=== PATIENT | male | born 2000 | race Caucasian/White ===

== ENCOUNTER 2021-11-15 06:55 | Emergency (ER) | payer OTHER, SELFPAY ==
--- NOTE | ~2021-11-15 | CT_ITS ---
EXAMINATION: CT abdomen pelvis wo con DATE: 11/15/2021 08:08 INDICATION: Left flank pain and back pain for 2 years TECHNIQUE: Computed tomography (CT) of the abdomen and pelvis was performed without intravenous contr ast. The dose-length product was 505.41 mGy-cm. Automated exposure control and iterative reconstructi on technique were employed. COMPARISON: None. FINDINGS: Lung bases are unremarkable. Heart size is normal. No significant pleural or pericardial ef fusion. There are calcified granulomas of the spleen. No renal/ureteral stones identified. The liver appears enlarged. Nonobstructive bowel gas pattern. Small amount of free fluid in the pelvis, nonspec ific. Nonobstructive bowel gas pattern. Colonic diverticulosis. Mild thickening of the descending col on and proximal sigmoid colon. Gallbladder is present. Normal lumbar alignment. No acute fracture or traumatic malalignment. IMPRESSION: 1. Mild thickening of the descending and proximal sigmoid colon. Small and or free fluid in the pelvi s. Findings suspicious for colitis, possibly infectious or inflammatory. 2: Hepatomegaly. Reviewed, dictated and finalized at location A. IMPRESSION: 1. Mild thickening of the descending and proximal sigmoid colon. Small and or f ree fluid in the pelvis. Findings suspicious for colitis, possibly infectious o r inflammatory. 2: Hepatomegaly.
[2021-11-15 07:02] VITALS: BP 124/68; PULSE 79; RESP 17; TEMP 36.6; O2SAT 100
[2021-11-15 07:30] LABS: Basophils Absolute Auto 0.1 K/mm3 (0.0-0.1); Eosinophils Absolute Auto 0.4 K/mm3 (0-0.3); Eosinophils Percent Auto 3.9 % (0-4.4); Hematocrit 40.2 % (42.0-52.0); Hemoglobin 12.9 g/dL (14.0-18.0); Immature Granulocyte Absolute 0.05 K/mm3 (0.00-0.031); Immature Granulocyte Percent A 0.5 % (0-0.5); Lymphocytes Absolute Auto 2.83 K/mm3 (0.9-3.2); Lymphocytes Percent Auto 30.2 % (18.3-44.2); Mean Corpuscular HGB Conc 32.1 g/dl (32-36); Mean Corpuscular Hemoglobin 29.2 pg (26-34); Mean Platelet Volume 9.2 fl (7.4-10.4); Monocytes Absolute Auto 0.8 K/mm3 (0.1-0.6); Monocytes Percent Auto 8.6 % (2.6-8.5); Neutrophils Absolute Auto 5.2 K/mm3 (1.3-6.7); Neutrophils Percent Auto 55.8 % (45.5-73.1); Platelet Count Result 298 k/mm3 (150-375); Red Blood Count 4.42 M/mm3 (4.6-6.20); Red Cell Distribution Width 12.6 % (11.5-14.5); White Blood Count 9.4 K/mm3 (4.5-10.0)
[2021-11-15] MEDS: LACTATED RINGERS 1,000 ML 999 ML IV CONT (07:31)
[2021-11-15] MEDS: ONDANSETRON INJ 4 MG/2 ML VIAL IV PUSH (07:33)
--- NOTE | 2021-11-15 07:33 | ED.GENADULT ---
HPI - General Adult General Chief complaint: Extremity Injury, Upper Stated complaint: Bilateral shoulder/arms pain Time Seen by Provider: 11/15/21 06:58 History of Present Illness HPI narrative: 21-year-old male presenting with bilateral shoulder/arm pain after lifting something heavy 2 days ago, he states that he also has some left sided back pain, he states that his boss told him he had been recently treated for a kidney infection himself so gave him some antibiotics which he took. He has also tried taking some Advil at home. About a week ago he also had some nausea and vomiting, chills, no cough. Has not been to see a doctor yet, but has been having back pain on and off for the last 2 years. Related Data Allergies Allergy/AdvReac Type Severity Reaction Status Date / Time No Known Allergies Allergy Verified 11/15/21 07:04 Review of Systems Review of Systems: CONST: No fever currently HEENT: No sore throat C/V: No chest pain RESP: No cough GI: Nausea and vomiting : Right flank pain without dysuria. M/S: Bilateral shoulder pain SKIN: No rash. NEURO: [No headache or focal numbness or weakness] PSYCH: [No depression] [facility] Past Medical History Medical History (Updated 11/15/21 @ 08:36 by Beatriz Hdez MD) Back pain Social History Social History (Updated 11/15/21 @ 13:41 by Beatriz Hdez MD) Smoking status: Never smoker Exam Narrative: EXAMINATION OF ORGAN SYSTEMS/BODY AREAS: Constitutional: Vital signs per nursing GENERAL: Appears uncomfortable in the bed HEAD: Normal with no signs of head trauma. EYES: EOMI, conjunctiva normal ENT: Hearing grossly intact LUNGS: Nonlabored breathing. HEART: [Regular rate and rhythm] ABD: [Soft], [nontender to palpation] EXT: Normal range of motion, no tenderness palpation of upper extremities SKIN: [No rashes or lesions.] NEURO: [Alert and oriented x 3. No gross focal sensory or strength deficits.] PSYCH: Normal affect Course Vital Signs Vital signs: Vital Signs Temperature 97.9 F 11/15/21 07:02 Pulse Rate 79 11/15/21 07:02 Respiratory Rate 17 11/15/21 07:02 Blood Pressure 124/68 11/15/21 07:02 Pulse Oximetry 100 11/15/21 07:02 Oxygen Delivery Room Air 06/11/22 07:02 Temperature 97.9 F 11/15/21 07:02 Pulse Rate 79 11/15/21 07:02 Respiratory Rate 17 11/15/21 07:02 Blood Pressure 124/68 11/15/21 07:02 Pulse Oximetry 100 11/15/21 07:02 Oxygen Delivery Room Air 11/15/21 07:02 Medical Decision Making MDM Narrative Medical decision making narrative: 21-year-old male presents here with several days of nausea, pain in his bilateral upper arms, and left flank pain, vital stable, exam shows said patient with full range of motion without any focal tenderness, we discussed the lower likelihood of any fracture given his exam findings and how he would likely benefit from follow-up with a primary care doctor for evaluation, I will obtain a urinalysis and CT to rule out kidney stone given the nausea and flank pain, this is negative for kidney stone but does show possible colitis, he is given IV fluids here and labs are unremarkable, I do feel he is stable for discharge with outpatient follow-up for further work-up and evaluation. Return precautions discussed with patient. Vital Signs Vital Signs: Vital Signs Temperature 97.9 F 11/15/21 07:02 Pulse Rate 79 11/15/21 07:02 Respiratory Rate 17 11/15/21 07:02 Blood Pressure 124/68 11/15/21 07:02 Pulse Oximetry 100 11/15/21 07:02 Oxygen Delivery Room Air 11/15/21 07:02 Temperature 97.9 F 11/15/21 07:02 Pulse Rate 79 11/15/21 07:02 Respiratory Rate 17 11/15/21 07:02 Blood Pressure 124/68 11/15/21 07:02 Pulse Oximetry 100 11/15/21 07:02 Oxygen Delivery Room Air 11/15/21 07:02 Lab Data Result diagrams: 11/15/21 07:24 11/15/21 07:24 Labs: Lab Results 11/15/21 11/15/21 11/15/21 Range/Units 07:24
[2021-11-15 07:38] LABS: Alanine Aminotransferase 23 U/L (6-50); Albumin Level 4.1 g/dL (3.5-5.1); Alkaline Phosphatase 73 U/L (38-126); Anion Gap 6 mmol/L (8-16); Aspartate Amino Transferase 24 U/L (17-59); Bilirubin,Total 0.3 mg/dL (0.2-1.3); Blood Urea Nitrogen 16 mg/dL (9-20); Calcium 8.9 mg/dL (8.4-10.2); Carbon Dioxide 31 mmol/L (22-30); Chloride 104 mmol/L (98-107); Estimated CRCL calculation 108 ml/min; Estimated Glomerular Filt Rate > 60; Glucose 114 mg/dL (65-110); Potassium 4.5 mmol/L (3.4-5.0); Sodium 141 mmol/L (137-145)
[2021-11-15] MEDS: KETOROLAC 30 MG/ML VIAL (*BKC) IV PUSH (08:28)
[2021-11-15 08:31] LABS: Add Urine Microscopic? NO; Appearance Urine Clear (Clear); Bilirubin Urine Negative (Negative); Blood Urine Negative (Negative); Color Urine Yellow (Yellow); Glucose Urine UA Negative (Negative); Ketones Urine Negative (Negative); Leukocyte Esterase Ur Negative LEU/UL (Negative); Nitrate Urine Negative (Negative); Protein Urine Negative (Negative); Specific Grav Ur 1.025 (1.001-1.035); Urobilinogen Urine 0.2 mg/dL (<2.0)
== END 2021-11-15 08:58 | disposition home or self-care (01) ==
PROVIDERS: Emergency Provider Emergency Medicine
DX: M25.512 Pain in left shoulder (principal); M25.511 Pain in right shoulder; R11.10 Vomiting, unspecified
CPT/HCPCS: 36415; 74176; 80053; 81003; 85025; 96361; 96374; 96375; 99284; J1885; J2405; J7120